=== PATIENT | female | born 1960 | race Caucasian/White ===

== ENCOUNTER → 2018-01-08 | Outpatient (CLI) | payer BC ==
--- NOTE | 2018-01-08 09:48 | CT ---
EXAMINATION TYPE: CT abdomen pelvis w con DATE OF EXAM: 01/08/2018 HISTORY: Abdominal/pelvis pain and pressure CT DLP: 1402mGycm Automated Exposure Control for Dose Reduction was Utilized. CONTRAST: CT scan of the abdomen and pelvis is performed with IV Contrast, patient injected with 100 mL of Isov ue 300. COMPARISON: None FINDINGS: LUNG BASES: No significant abnormality is appreciated. LIVER/GB: There is 1.6 cm gallstone in gallbladder without surrounding inflammatory change. PANCREAS: No significant abnormality is seen. SPLEEN: There is 1.3 cm low dense lesion probable simple thin-walled cyst in the spleen axial image 2 8 posteriorly. ADRENALS: There is 9 mm nodular thickening posterior limb left adrenal gland axial image 29 presumed benign. KIDNEYS: No significant abnormality is seen. BOWEL: The oral contrast reaches level of proximal transverse colon. There is contrast-filled small b owel loops in the left lower quadrant that are prominent measuring up to 3.0 cm in size with gradual transition into nondilated ileal loops in the right lower quadrant. Otherwise there is no suspicious small or large bowel dilatation. Evaluation of distal bowel is slightly suboptimal. There is felt mil d to moderate concentric wall thickening in the sigmoid colon at level of pelvis axial image 78. No s ignificant surrounding fat stranding is seen. UTERUS/ADNEXA: Uterus is surgically absent. A few scattered pelvic phleboliths are seen. LYMPH NODES: No greater than 1cm abdominal or pelvic lymph nodes are appreciated. OSSEOUS STRUCTURES: There is grade 1 anterolisthesis of L3 on L4 with moderate disc space narrowing, there is vacuum disc phenomenon with endplate sclerosis right aspect. Spinal canal stenosis is seen a xial image 49 at this level. There is moderate additional multilevel anterior and lateral spurring th roughout the thoracic spine. There is moderate disc space narrowing with vacuum disc phenomenon and d isc herniation with facet arthropathy contributing to spinal canal effacement L4-L5 level also. OTHER: Moderate calcified plaque of aorta extends into distal branch vessels. There is partial visual ization of fat-containing umbilical hernia axial image 49. IMPRESSION: 1. Possible mild or partial mid small bowel obstruction left lower quadrant. No significant obstructi on is seen as contrast passes this point. Possible sigmoid colitis. Correlate clinically. 2. Multilevel degenerative changes in the thoracolumbar spine with is fairly prominent spinal canal e ffacement L4-L5 level and more prominent spinal canal effacement or stenosis noted L3-L4 level.
== END | disposition home or self-care (01) ==
LOC: RADCTMAIN 06:39
PROVIDERS: ATTEND Family Medicine
DX: R10.9 Unspecified abdominal pain (principal); Z91.012 Allergy to eggs
CPT/HCPCS: 74177; Q9967

== ENCOUNTER → 2018-02-27 | Outpatient (CLI) | payer BC ==
--- NOTE | 2018-02-27 23:27 | MR ---
EXAMINATION TYPE: MR lumbar spine wo/w con DATE OF EXAM: 02/27/2018 COMPARISON: CT abdomen and pelvis September 08, 2017 HISTORY: Low back pain / right sided Radiculopathy per order. Severe low back pain into right lower extremity for 1 year per patient. TECHNIQUE: Multiplanar, multisequence images of the lumbar spine is performed without and with IV contrast, util izing 11 mL intravenous Gadavist FINDINGS: There is levoconvex scoliotic curvature centered in the mid lumbar spine redemonstrated. Sa gittal images of the lumbar spine show vertebral body heights to appear satisfactory. There is straig htening of the lumbar spine with persistent grade 1 retrolisthesis of L4 on L5. There is grade 1 ante rolisthesis L3 on L4. Multilevel disc desiccation is present. There is moderate to advanced disc spa ce narrowing L3-L4 level redemonstrated. There is moderate disc space narrowing L4-L5 levels seen. Po sterior disc herniations are seen L2-L3 through the L4-L5 levels on sagittal images. Most prominent s ruby canal effacement or stenosis is noted L3-L4 level. The conus medullaris is normal in position a nd signal ending mid L1 level. Heterogeneous endplate changes centered at L3-L4 level are identified. No suspicious enhancement is seen. Axial images at T12-L1 level shows mild broad disc bulge mildly effacing anterior thecal sac, bilater al neural foramina are patent. Axial images at L1-L2 level are felt within normal limits. Axial images at L2-L3 level mild to moderate broad disc bulge effacing the anterior thecal sac. There is mild facet joint changes bilaterally effacing posterior lateral thecal sac. There is mild left gr eater than right bilateral anterior inferior neural foraminal narrowing. Axial images at the L3-L4 level shows moderate facet degenerative changes bilaterally effacing lease out worker ior lateral thecal sac. There is spondylolisthesis and advanced broad disc bulge with prominent right foraminal disc protrusion component. There is marked spinal canal stenosis especially right aspect s ruby canal on axial image 13. Left-sided neural foramina shows mild to moderate anterior inferior ne ural foraminal narrowing. Right-sided neural foramina shows advanced neural foraminal narrowing with encroachment on exiting right L3 nerve seen. Axial images at the L4-L5 level mild/moderate facet degenerative changes and ligament flavum hypertro phy effacing posterior lateral thecal sac. There is broad disc bulge effacing the anterior thecal sac and axial image 8. There is moderate right and severe left-sided neural foraminal narrowing encroach ing on left L4 nerve sagittal image 2. Axial images at the L5-S1 level mild facet degenerative changes bilaterally. There is central disc pr otrusion but the spinal canal is preserved. Bilateral neural foramina are patent. No suspicious retroperitoneal findings are identified. IMPRESSION: Straightening of lumbar spine with with multilevel spondylolisthesis and degenerative zenobia nge most prominent at L3-L4 and L4-L5 levels as detailed above. Most prominent spinal canal stenosis L3-L4 level with advanced right-sided neural foraminal narrowing noted at this level.
== END ==
LOC: RADMRIMAIN 08:47
PROVIDERS: ATTEND Family Medicine
DX: M48.061 Spinal stenosis, lumbar region without neurogenic claudication (principal); M99.73 Connective tissue and disc stenosis of intervertebral foramina of lumbar region; M43.16 Spondylolisthesis, lumbar region; M51.17 Intervertebral disc disorders with radiculopathy, lumbosacral region; M41.86 Other forms of scoliosis, lumbar region
CPT/HCPCS: 82565; 72158; A9581

== ENCOUNTER 2020-02-21 16:33 | Inpatient (IN) | payer BC, OTHER ==
--- NOTE | 2020-02-21 16:45 | ED ---
Skin/Abscess/FB HPI - General Chief complaint: Skin/Abscess/Foreign Body Stated complaint: Fever, R Leg Pain Time Seen by Provider: 02/21/20 16:45 Source: patient Mode of arrival: ambulatory Limitations: no limitations - History of Present Illness Initial comments: Patient is a 59-year-old female with history of lymphedema presenting to emergency Department the chief complaint of leg pain and fever. Patient states earlier today she noticed some itching on the right leg which eventually turned into Geraldine frontal erythema all along the right lower extremity. Patient reports that his gradually moving proximally and now it is up to the knee. States she does have some discomfort in the left lower extremity although it is not as significant as the right. States she does have history of multiple the ones that chronically bleak serous fluid due to the lymphedema. She does report some discomfort although it is tolerable. Patient states she did develop a fever about one hour prior to arrival. She did not take any medication to alleviate the symptoms. - Related Data Home Medications Medication Instructions Recorded Confirmed ALPRAZolam [Xanax] 0.25 mg PO DAILY PRN 02/21/20 02/21/20 Atorvastatin Calcium [Lipitor] 40 mg PO HS 02/21/20 02/21/20 Benazepril HCl 10 mg PO DAILY 02/21/20 02/21/20 Cholecalciferol [Vitamin D3 (25 1,000 unit PO DAILY 02/21/20 02/21/20 Mcg = 1000 Iu)] Diclofenac Sodium [Voltaren] 75 mg PO BID 02/21/20 02/21/20 Gabapentin 600 mg PO BID 02/21/20 02/21/20 Omeprazole 20 mg PO DAILY 02/21/20 02/21/20 hydroCHLOROthiazide [Hydrodiuril] 25 mg PO DAILY 02/21/20 02/21/20 traMADol HCL 50 - 100 mg PO TID 02/21/20 02/21/20 Allergies Allergy/AdvReac Type Severity Reaction Status Date / Time No Known Allergies Allergy Verified 02/21/20 18:32 Review of Systems ROS Statement: Those systems with pertinent positive or pertinent negative responses have been documented in the HPI. ROS Other: All systems not noted in ROS Statement are negative. Past Medical History Past Medical History: Hypertension Additional Past Medical History / Comment(s): lymphodema History of Any Multi-Drug Resistant Organisms: None Reported Past Surgical History: Orthopedic Surgery Additional Past Surgical History / Comment(s): bilat knee, left wrist, right ankle. Past Psychological History: No Psychological Hx Reported Smoking Status: Current every day smoker Past Alcohol Use History: None Reported Past Drug Use History: Marijuana General Exam Limitations: no limitations General appearance: alert, in no apparent distress Head exam: Present: atraumatic, normocephalic, normal inspection Eye exam: Present: normal appearance, PERRL, EOMI Pupils: Present: normal accommodation ENT exam: Present: normal exam, normal oropharynx, mucous membranes moist, TM's normal bilaterally, normal external ear exam Neck exam: Present: normal inspection, full ROM. Absent: tenderness Respiratory exam: Present: normal lung sounds bilaterally. Absent: respiratory distress, wheezes, rales Cardiovascular Exam: Present: regular rate, normal rhythm, normal heart sounds Extremities exam: Present: full ROM, tenderness (Some tenderness along the infected cellulitic regions.), normal capillary refill, pedal edema. Absent: normal inspection (Edematous bilateral lower extremity is. Multiple open wounds that are leaking serous fluid. There is also overlying cellulitic skin changes on the right lower extremity that appear different from her chronic stasis dermatitis.), joint swelling, calf tenderness Back exam: Present: normal inspection, full ROM. Absent: tenderness, CVA tenderness (R), CVA tenderness (L) Neurological exam: Present: alert, oriented X3 Psychiatric exam: Present: normal affect, normal mood Skin exam: Present: warm, dry, intact, normal color Course Vital Signs 02/21/20 16:34 Temperature 100.3 F H Pulse Rate 138 H Respiratory 18 Rate Blood Pressure 136/79 O2 Sat by Pulse 97 Oximetry Medical Decision Making - Medical Decision Making patient is a 61-year-old female history of lymphedema presenting to the emergency department with a chief complaint of leg infection. On physical examination, patient appears to have multiple chronic draining wounds of bilateral lower extremities. However, there appears to be cellulitis mostly on the right lower extremity that appears to be progressing proximally towards the knee. This has occurred only within a several hour period. Patient does fit sirs criteria with leukocytopenia, febrile and tachycardic. Patient was started on maintenance fluids of 130 ml/hour along with Rocephin. Patient has a lactate of 2.7. Patient will be started on vancomycin per pharmacy dosing. Patient will be admitted for further medical management. Case discussed with Admitting is Dr Mclean ID on consult - Lab Data Result diagrams: 02/21/20 17:33 02/21/20 17:33 Lab Results 02/21/20 02/21/20 02/21/20 Range/Units 17:33 17:33 17:33 WBC 2.3 L (3.8-10.6) k/uL RBC 4.86 (3.80-5.40) m/uL Hgb 15.0 (11.4-16.0) gm/dL Hct 45.6 (34.0-46.0) % MCV 93.8 (80.0-100.0) fL MCH 30.9 (25.0-35.0) pg MCHC 33.0 (31.0-37.0) g/dL RDW 13.3 (11.5-15.5) % Plt Count 262 (150-450) k/uL Neutrophils % 79 % Lymphocytes % 13 % Monocytes % 7 % Eosinophils % 1 % Basophils % 0 % Neutrophils # 1.8 (1.3-7.7) k/uL Lymphocytes # 0.3 L (1.0-4.8) k/uL Monocytes # 0.2 (0-1.0) k/uL Eosinophils # 0.0 (0-0.7) k/uL Basophils # 0.0 (0-0.2) k/uL Manual Slide Review Performed Sodium 135 L (137-145) mmol/L Potassium 4.1 (3.5-5.1) mmol/L Chloride 97 L (98-107) mmol/L Carbon Dioxide 27 (22-30) mmol/L Anion Gap 11 mmol/L BUN 13 (7-17) mg/dL Creatinine 0.68 (0.52-1.04) mg/dL Est GFR (CKD-EPI)AfAm >90 (>60 ml/min/1.73 sqM) Est GFR (CKD-EPI)NonAf >90 (>60 ml/min/1.73 sqM) Glucose 117 H (74-99) mg/dL Plasma Lactic Acid Micky 2.7 H* (0.7-2.0) mmol/L Calcium 9.4 (8.4-10.2) mg/dL Total Bilirubin 1.6 H (0.2-1.3) mg/dL AST 34 (14-36) U/L ALT 18 (4-34) U/L Alkaline Phosphatase 122 (38-126) U/L Total Protein 6.8 (6.3-8.2) g/dL Albumin 3.7 (3.5-5.0) g/dL Disposition Clinical Impression: Cellulitis, leg, Fever Disposition: ADMITTED IP TO THIS HOSP Condition: Fair Additional Instructions: Patient will be admitted Is patient prescribed a controlled substance at d/c from ED?: No Referrals: Michael Mclean MD [Primary Care Provider] - 1-2 days Time of Disposition: 18:50
[2020-02-21] MEDS ORDERED: cefTRIAXone IN SWFI 1,000 MG/10 ML SYRINGE IVP STA (16:56)
[2020-02-21] MEDS ORDERED: SODIUM CHLORIDE 0.9% 1,000 ML IV STA (16:56)
[2020-02-21] MEDS ORDERED: ACETAMINOPHEN TAB 500 MG TAB PO STA (17:00)
[2020-02-21 18:02] LABS: ALT 18 U/L (4-34); AST 34 U/L (14-36); African American GFR (CKD) >90 (>60 ml/min/1.73 sqM); Albumin 3.7 g/dL (3.5-5.0); Alkaline Phosphatase 122 U/L (38-126); Anion Gap 11 mmol/L; Blood Urea Nitrogen 13 mg/dL (7-17); Calcium 9.4 mg/dL (8.4-10.2); Carbon Dioxide 27 mmol/L (22-30); Chloride 97 mmol/L (98-107); Glucose 117 mg/dL (74-99); Non-African American GFR(CKD) >90 (>60 ml/min/1.73 sqM); Potassium 4.1 mmol/L (3.5-5.1); Sodium 135 mmol/L (137-145); Total Bilirubin 1.6 mg/dL (0.2-1.3); Total Protein 6.8 g/dL (6.3-8.2)
[2020-02-21 18:23] LABS: Basophils % (A) 0 %; Eosinophils % (A) 1 %; HCT 45.6 % (34.0-46.0); Lymphocytes # (A) 0.3 k/uL (1.0-4.8); Lymphocytes % (A) 13 %; MCH 30.9 pg (25.0-35.0); MCV 93.8 fL (80.0-100.0); Mean Platelet Volume 7.3; Monocytes # (A) 0.2 k/uL (0-1.0); Monocytes % (A) 7 %; Neutrophils # (A) 1.8 k/uL (1.3-7.7); Neutrophils % (A) 79 %; Platelet Count 262 k/uL (150-450); RBC 4.86 m/uL (3.80-5.40); RDW 13.3 % (11.5-15.5); WBC 2.3 k/uL (3.8-10.6)
[2020-02-21] MEDS ORDERED: VANCOMYCIN IV PER PHARMACY 1 EACH MISC MISCELLANE PRN ×2 (18:42→18:44)
[2020-02-21] MEDS ORDERED: VANCOMYCIN 1,750 MG in SODIUM CHLORIDE 0.9% 500 ML 500 ML IVPB STA (18:46)
[2020-02-21] MEDS ORDERED: LORazepam 2 MG/ML INJ IV PRN (18:51)
[2020-02-21] MEDS ORDERED: HYDROmorphone 0.5 MG/0.5 ML SYRINGE IVP PRN (18:51)
[2020-02-21] MEDS ORDERED: NALOXONE 0.4 MG/ML 1 ML VIAL IV PRN (18:51)
[2020-02-21] MEDS ORDERED: ONDANSETRON 4 MG/2 ML VIAL IVP PRN (18:51)
[2020-02-21] MEDS: SODIUM CHLORIDE 0.9% 1,000 ML IV SCH (20:41)
[2020-02-21] MEDS ORDERED: ALPRAZolam 0.25 MG TAB PO PRN (21:47)
[2020-02-21] MEDS ORDERED: traMADol 50 MG TAB PO PRN (21:54)
[2020-02-21] MEDS: GABAPENTIN 300 MG CAP PO SCH (23:31)
[2020-02-22] MEDS: HEPARIN SODIUM,PORCINE 5,000 UNIT/ML 1 ML VIAL SQ SCH ×3 (00:10→20:37)
[2020-02-22] MEDS: traMADol 50 MG TAB PO PRN ×3 (00:11→17:46)
[2020-02-22] MEDS: ACETAMINOPHEN TAB 325 MG TAB PO PRN ×3 (02:51→19:18)
[2020-02-22] MEDS: VANCOMYCIN 1,750 MG in SODIUM CHLORIDE 0.9% 500 ML 500 ML IVPB SCH ×2 (06:28→17:46)
[2020-02-22] MEDS: hydroCHLOROthiazide 25 MG TAB PO SCH (07:14)
[2020-02-22] MEDS: GABAPENTIN 300 MG CAP PO SCH ×2 (07:14→20:36)
[2020-02-22] MEDS: ETODOLAC 400 MG TAB PO SCH ×2 (07:15→20:36)
[2020-02-22] MEDS: lisinopriL 5 MG TAB PO SCH (07:15)
[2020-02-22] MEDS: PANTOPRAZOLE 40 MG TABLET PO SCH (07:15)
[2020-02-22] MEDS: SODIUM CHLORIDE 0.9% 1,000 ML IV SCH ×2 (07:17→22:27)
--- NOTE | 2020-02-22 17:37 | P.GSCN ---
History of Present Illness Consult date: 02/22/20 Reason for Consult: venous stasis disease and lymphedema to her bilateral lower extremities. Requesting physician: Michael Mclean History of present illness: This a 59-year-old female patient who is followed by Dr. Michael Mclean on about patient basis. She has a past medical history significant for hypertens ion, chronic ongoing nicotine dependence, daily marijuana use, lymphedema to her bilateral lower extremities and history of urinary tract infection. She presented to the emergency department here at [facility] yesterday with complaints of bilateral lower extremity leg pain, fever and new onset of redness with ulcerations to her bilateral lower extremities. She denies any complaints of nausea, vomiting, diarrhea, constipation, or gait dysfunction. On admission to the emergency department her T-max temperature was 102.4F. Due to her presenting symptoms, fever and redness to her bilateral lower extremities she was admitted for further evaluation and treatment recommendations. Review of Systems A 14 point review systems was completed and was negative except as mentioned in the HPI. Past Medical History Past Medical History: Hypertension Additional Past Medical History / Comment(s): lymphodema History of Any Multi-Drug Resistant Organisms: None Reported Past Surgical History: Orthopedic Surgery Additional Past Surgical History / Comment(s): bilat knee, left wrist, right ankle. Past Psychological History: No Psychological Hx Reported Smoking Status: Current every day smoker Past Alcohol Use History: None Reported Past Drug Use History: Marijuana - Past Family History Mother Additional Family Medical History / Comment(s): mother had a history of degenerative disc disease Medications and Allergies Home Medications Medication Instructions Recorded Confirmed Type ALPRAZolam [Xanax] 0.25 mg PO DAILY PRN 02/21/20 02/21/20 History Atorvastatin Calcium [Lipitor] 40 mg PO HS 02/21/20 02/21/20 History Benazepril HCl 10 mg PO DAILY 02/21/20 02/21/20 History Cholecalciferol [Vitamin D3 (25 1,000 unit PO DAILY 02/21/20 02/21/20 History Mcg = 1000 Iu)] Diclofenac Sodium [Voltaren] 75 mg PO BID 02/21/20 02/21/20 History Gabapentin 600 mg PO BID 02/21/20 02/21/20 History Omeprazole 20 mg PO DAILY 02/21/20 02/21/20 History hydroCHLOROthiazide [Hydrodiuril] 25 mg PO DAILY 02/21/20 02/21/20 History traMADol HCL 50 - 100 mg PO TID 02/21/20 02/21/20 History Allergies Allergy/AdvReac Type Severity Reaction Status Date / Time Latex, Natural Rubber Allergy Rash/Hives Verified 02/22/20 06:43 Surgical - Exam Vital Signs Temp Pulse Resp BP Pulse Ox 100.3 F H 138 H 18 136/79 97 02/21/20 16:34 02/21/20 16:34 02/21/20 16:34 02/21/20 16:34 02/21/20 16:34 - General well developed, well nourished, no distress, moderate distress, no pain - Eyes PERRL, normal ocular movement - ENT normal pinna, normal nares, normal mucosa, no hearing loss, no congestion - Neck neck is supple, no lymphadenopathy. no masses, no bruits, trachea midline, no venous distension - Respiratory lungs are essentially clear throughout. No wheezes, rhonchi or crackles. R espirations are symmetrical and nonlabored. - Cardiovascular regular rhythm and rate. S1 and S2 present, negative for S3, gallop or murmur. - Abdomen abdomen is soft, nontender and nondistended. Active bowel sounds present in all 4 abdominal quadrants. No guarding or rigidity. - Genitourinary deferred - Rectum deferred - Integumentary skin is warm and dry. No clubbing or cyanosis is present. Multiple open wounds with scant serous drainage to her bilateral lower extremities. Erythema to her left lower extremity from her ankle up to her knee. - Neurologic cranial nerves II through XII intact. - Musculoskeletal normal gait, normal posture - Psychiatric oriented to time, oriented to person, oriented to place, speech is normal, memory intact Results - Labs 02/21/20 17:33 02/21/20 17:33 Abnormal Lab Results - Last 24 Hours (Table) 02/21/20 02/21/20 02/21/20 Range/Units 17:33 17:33 17:33 WBC 2.3 L (3.8-10.6) k/uL Lymphocytes # 0.3 L (1.0-4.8) k/uL Sodium 135 L (137-145) mmol/L Chloride 97 L (98-107) mmol/L Glucose 117 H (74-99) mg/dL Plasma Lactic Acid Micky 2.7 H* (0.7-2.0) mmol/L Total Bilirubin 1.6 H (0.2-1.3) mg/dL Diabetes panel 02/21/20 Range/Units 17:33 Sodium 135 L (137-145) mmol/L Potassium 4.1 (3.5-5.1) mmol/L Chloride 97 L (98-107) mmol/L Carbon Dioxide 27 (22-30) mmol/L BUN 13 (7-17) mg/dL Creatinine 0.68 (0.52-1.04) mg/dL Glucose 117 H (74-99) mg/dL Calcium 9.4 (8.4-10.2) mg/dL AST 34 (14-36) U/L ALT 18 (4-34) U/L Alkaline Phosphatase 122 (38-126) U/L Total Protein 6.8 (6.3-8.2) g/dL Albumin 3.7 (3.5-5.0) g/dL Calcium panel 02/21/20 Range/Units 17:33 Calcium 9.4 (8.4-10.2) mg/dL Albumin 3.7 (3.5-5.0) g/dL Pituitary panel 02/21/20 Range/Units 17:33 Sodium 135 L (137-145) mmol/L Potassium 4.1 (3.5-5.1) mmol/L Chloride 97 L (98-107) mmol/L Carbon Dioxide 27 (22-30) mmol/L BUN 13 (7-17) mg/dL Creatinine 0.68 (0.52-1.04) mg/dL Glucose 117 H (74-99) mg/dL Calcium 9.4 (8.4-10.2) mg/dL Adrenal panel 02/21/20 Range/Units 17:33 Sodium 135 L (137-145) mmol/L Potassium 4.1 (3.5-5.1) mmol/L Chloride 97 L (98-107) mmol/L Carbon Dioxide 27 (22-30) mmol/L BUN 13 (7-17) mg/dL Creatinine 0.68 (0.52-1.04) mg/dL Glucose 117 H (74-99) mg/dL Calcium 9.4 (8.4-10.2) mg/dL Total Bilirubin 1.6 H (0.2-1.3) mg/dL AST 34 (14-36) U/L ALT 18 (4-34) U/L Alkaline Phosphatase 122 (38-126) U/L Total Protein 6.8 (6.3-8.2) g/dL Albumin 3.7 (3.5-5.0) g/dL Assessment and Plan Assessment: 1. Lymphedema with cellulitis to her bilateral lower extremities 2. Fever, secondary to above 3. History of hypertension 4. Chronic ongoing nicotine dependence 5. Daily marijuana use Plan: The patient was seen and examined at her bedside on the medical surgical unit. She was also is seen in conjunction with Dr. Robert Pope. Her chart and diagnostics were reviewed. She does have positive dorsalis pedal pulses per Doppler bilateral. Recommendations for local wound care with Triad cream to her ulcerated areas, cover with gauze wrapped with Kirlex and secure with Ed wraps from her toes to just below the knee bilateral. Antibioticmanagement per infectious disease. Elevation of her lower extremities with her legs being e levated 6-12 inches higher than the level of her heart when not up ambulating or sitting up for meals. Medical management and other comorbidities per primary care service. Discussed the importance of smoking cessation and risk modification with the patient. Thank you Dr. Mclean for this consult and we'll look for to working with you in the care of this patient. Time with Patient: Greater than 30
--- NOTE | 2020-02-22 18:19 | HP ---
HISTORY AND PHYSICAL CHIEF COMPLAINT: Fever, chills and cellulitis of the lower legs. HISTORY OF PRESENT ILLNESS: This is another admission for this 59-year-old white female who has congenital massive lower extremity lymphedema. She has had some open areas, particularly on the right lower leg, and noticed that there was some redness. After that she developed chills and came to the emergency room, where she was found to have extensive cellulitis of both lower legs with the right being worse. She has otherwise been fairly healthy. She does have hypertension. REVIEW OF SYSTEMS: She has had no headaches, neurologic problems, difficulty with vision or hearing, chest pain, shortness of breath, cough, hemoptysis, abdominal pain, nausea, vomiting, hematemesis, melena, hematochezia, jaundice, hepatitis, cirrhosis, hematuria, frequency, urgency, incontinence, renal failure, diabetes, etc. Past medical history, family history, and personal and social histories are otherwise unremarkable and noncontributory. PHYSICAL EXAMINATION: Blood pressure is 131/72 with a pulse of 80, respirations of 34 and temperature of 100.1. In general she appeared to be overweight and in no acute distress. Skin color was normal. Skin was warm and dry. Lymph nodes were not enlarged. Head, ears, eyes, nose, mouth and throat were normal. Chest was clear. Cardiac exam was normal. Abdomen was soft and protuberant. Extremities demonstrated massive lymphedema in the lower legs. There were several open areas on the right lower leg with some transudate, and there was cellulitis of both lower legs. Neurologically she was intact. She is admitted to the hospital with the diagnoses: 1. Cellulitis of both lower extremities. 2. Congenital chronic lymphedema of the lower extremities. 3. Mild hypertension. PLAN: IV fluids, IV antibiotics and consults with Vascular Surgery and Infectious Disease. MMODL / IJN: [id number] /
--- NOTE | 2020-02-22 18:24 | PN ---
PROGRESS NOTE DATE OF SERVICE: 02/22/2020 CHIEF COMPLAINT: Cellulitis of the lower legs with lymphedema and bacteremia. HISTORY OF PRESENT ILLNESS: This lady is running low-grade temperatures, but otherwise she is fairly comfortable. PHYSICAL EXAMINATION: Her chest is clear. Cardiac exam is normal. Legs are still quite inflamed and partially wrapped. PLAN: 1. Continue with IV fluids and antibiotics. 2. Await recommendations of Vascular Surgery and Infectious Disease. MMODL / IJN: [id number] /
[2020-02-22] MEDS: ATORVASTATIN 40 MG TAB PO SCH (20:36)
--- NOTE | 2020-02-22 22:58 | P.CONS ---
History of Present Illness - Reason for Consult Consult date: 02/22/20 Bilateral leg cellulitis Requesting physician: Michael Mclean - Chief Complaint Bilateral leg swelling and redness x few days - History of Present Illness Patient is 59-year-old female with a past medical history significant for lymphedema bilateral lower extremity presenting to the ER at [facility] yesterday for evaluation of bilateral leg pain and fever patient noticed to have a increasing swelling and redness especially to the right leg that have been going on for the last few days patient described the pain to be more of a dull aching at times sharp with intensity of almost 5-6 out of 10 and no radiation she did have some superficial ulceration but no purulent drainage with the Center the patient was evaluated by the physician on arrival to the ER, the patient did have a fever to 102F patient did have leukopenia with white c ount 2.3 and elevated lactic acid, patient has been diagnosed with cellulitis patient was admitted to the hospital started on vancomycin and infectious disease was consulted for further management of antibiotic therapy patient has been evaluated by vascular surgery local care to the superficial wound likely has been advised triad cream followed by Ed wrap Review of Systems Positive point has been mentioned in the HPI rest of the systems are negative Past Medical History Past Medical History: Hypertension Additional Past Medical History / Comment(s): lymphodema History of Any Multi-Drug Resistant Organisms: None Reported Past Surgical History: Orthopedic Surgery Additional Past Surgical History / Comment(s): bilat knee, left wrist, right ankle. Past Psychological History: No Psychological Hx Reported Smoking Status: Current every day smoker Past Alcohol Use History: None Reported Past Drug Use History: Marijuana - Past Family History Mother Additional Family Medical History / Comment(s): mother had a history of degenerative disc disease Medications and Allergies Home Medications Medication Instructions Recorded Confirmed Type ALPRAZolam [Xanax] 0.25 mg PO DAILY PRN 02/21/20 02/21/20 History Atorvastatin Calcium [Lipitor] 40 mg PO HS 02/21/20 02/21/20 History Benazepril HCl 10 mg PO DAILY 02/21/20 02/21/20 History Cholecalciferol [Vitamin D3 (25 1,000 unit PO DAILY 02/21/20 02/21/20 History Mcg = 1000 Iu)] Diclofenac Sodium [Voltaren] 75 mg PO BID 02/21/20 02/21/20 History Gabapentin 600 mg PO BID 02/21/20 02/21/20 History Omeprazole 20 mg PO DAILY 02/21/20 02/21/20 History hydroCHLOROthiazide [Hydrodiuril] 25 mg PO DAILY 02/21/20 02/21/20 History traMADol HCL 50 - 100 mg PO TID 02/21/20 02/21/20 History Allergies Allergy/AdvReac Type Severity Reaction Status Date / Time Latex, Natural Rubber Allergy Rash/Hives Verified 02/22/20 06:43 Physical Exam Vitals: Vital Signs Temp Pulse Resp BP BP Pulse Ox 02/22/20 20:42 100.3 F H 02/22/20 19:00 102.8 F H 120 H 20 125/75 92 L 02/22/20 15:17 100 02/22/20 15:00 99.0 F 95 16 113/70 95 02/22/20 07:25 16 02/22/20 07:00 99.5 F 100 16 99/59 94 L 02/22/20 04:37 98.1 F 02/22/20 03:58 100.3 F H 02/22/20 02:52 102.4 F H 02/22/20 01:38 101.2 F H 99 15 110/63 96 Intake and Output 02/22/20 02/22/20 02/22/20 06:59 14:59 22:59 Other: # Voids 2 GENERAL DESCRIPTION: Middle-aged female lying in bed, no distress. No tachypnea or accessory muscle of respiration use. HEENT: Shows Pallor , no scleral icterus. Oral mucous membrane is dry. No pharyngeal erythema or thrush NECK: Trachea central, no thyromegaly. LUNGS: Unlabored breathing. Clear to auscultation anteriorly. No wheeze or crackle. HEART: S1, S2, regular rate and rhythm. No loud murmur ABDOMEN: Soft, no tenderness , guarding or rigidity, no organomegaly EXTREMITIES: Bilateral lower extremity with diffuse swelling and redness no purulent drainage. SKIN: No rash, no masses palpable. NEUROLOGICAL: The patient is awake, alert, oriented x3, mood and affect normal. Results CBC & Chem 7: 02/21/20 17:33 02/21/20 17:33 Labs: Microbiology - Last 24 Hours (Table) 02/21/20 17:33 Blood Culture - Preliminary Blood No Growth after 24 hours Assessment and Plan Assessment: 1- patient presented to hospital with sepsis in this patient who did have a fever and leukopenia source of bilateral lower extremity cellulitis in this patient who did have bilateral lower extremity lymphedema with diffuse swelling redness likely representing streptococal cellulitis clinically doubt MRSA or gram-negative infection and no evidence of any abscess clinically (1) Sepsis Current Visit: Yes Status: Acute Code(s): A41.9 - SEPSIS, UNSPECIFIED ORGANISM SNOMED Code(s): 61282057 (2) Bilateral lower leg cellulitis Current Visit: Yes Status: Acute Code(s): L03.116 - CELLULITIS OF LEFT LOWER LIMB; L03.115 - CELLULITIS OF RIGHT LOWER LIMB SNOMED Code(s): 465220073 Plan: 1-Marked the area of the redness both legs 2- discontinue the vancomycin 3- cefazolin 2 g every 8 hours We will follow on clinical condition and cultures to further adjust medication if needed Thank you for this consultation will follow this patient with you
[2020-02-23] MEDS: hydroCHLOROthiazide 25 MG TAB PO SCH (08:35)
[2020-02-23] MEDS: GABAPENTIN 300 MG CAP PO SCH ×2 (08:35→20:27)
[2020-02-23] MEDS: lisinopriL 5 MG TAB PO SCH (08:35)
[2020-02-23] MEDS: HEPARIN SODIUM,PORCINE 5,000 UNIT/ML 1 ML VIAL SQ SCH ×2 (08:36→20:27)
[2020-02-23] MEDS: HYDROPHILIC CREAM 180 GM TUBE TOPICAL SCH (08:36)
[2020-02-23] MEDS: PANTOPRAZOLE 40 MG TABLET PO SCH (08:36)
[2020-02-23] MEDS: ETODOLAC 400 MG TAB PO SCH ×2 (08:36→21:11)
[2020-02-23 09:45] LABS: African American GFR (CKD) 117.3 (60.0-200.0); Non-African American GFR(CKD) 101.2 (60.0-200.0)
[2020-02-23] MEDS: SODIUM CHLORIDE 0.9% 1,000 ML IV SCH ×2 (14:13→23:32)
[2020-02-23] MEDS: traMADol 50 MG TAB PO PRN (17:02)
--- NOTE | 2020-02-23 17:19 | PN ---
PROGRESS NOTE CHIEF COMPLAINT: Cellulitis of the lower extremities. HISTORY OF PRESENT ILLNESS: This lady is fairly comfortable. Pain is improved. Both legs were wrapped with Ed wraps. She did have slight chill last night. PHYSICAL EXAMINATION: Her chest is clear. The cardiac exam is normal and the abdomen is soft, nontender. Lower extremities are wrapped with 6 inch Ed wraps from the knees all way to the toes. IMPRESSION: 1. Cellulitis of the lower legs with the right being worse than the left. 2. Chronic lymphedema. 3. Stasis dermatitis. PLAN: Continue with IV fluids, antibiotics, compression and elevation. She should be able to go home in the next day or two. MMODL / IJN: [id number] /
[2020-02-23] MEDS: ATORVASTATIN 40 MG TAB PO SCH (20:27)
--- NOTE | 2020-02-23 23:21 | PN ---
PROGRESS NOTE DATE OF SERVICE: 02/23/2020 REASON FOR FOLLOWUP: Bilateral lower extremity venous stasis ulcer with secondary cellulitis. INTERVAL HISTORY: The patient is currently afebrile. The patient is breathing comfortably. Patient denies having any chest pain or shortness of breath or cough. No nausea. No vomiting. No abdominal pain or any worsening of pain to the lower extremities. PHYSICAL EXAMINATION: Blood pressure is 105/63 with a pulse of 81, temperature 98.5. She is 95% on room air. General description is a middle-aged female lying in bed in no distress. RESPIRATORY SYSTEM: Unlabored breathing, clear to auscultation. HEART: S1, S2. Regular rate and rhythm. ABDOMEN: Soft, no tenderness. Lower extremity redness slightly decreased. DIAGNOSTIC IMPRESSION AND PLAN: Patient with bilateral lower extremity venous stasis ulcer and secondary cellulitis. The patient is currently covered with cefazolin 2 grams q.8 to continue. Local wound care per Surgery. Continue with supportive care. MMODL / IJN: [id number] /
[2020-02-24] MEDS: ETODOLAC 400 MG TAB PO SCH ×2 (08:14→20:16)
[2020-02-24] MEDS: HEPARIN SODIUM,PORCINE 5,000 UNIT/ML 1 ML VIAL SQ SCH ×2 (08:15→20:19)
[2020-02-24] MEDS: GABAPENTIN 300 MG CAP PO SCH ×2 (08:15→20:16)
[2020-02-24] MEDS: PANTOPRAZOLE 40 MG TABLET PO SCH (08:15)
[2020-02-24] MEDS: lisinopriL 5 MG TAB PO SCH (08:15)
[2020-02-24] MEDS: hydroCHLOROthiazide 25 MG TAB PO SCH (08:15)
[2020-02-24] MEDS: traMADol 50 MG TAB PO PRN ×2 (08:16→20:20)
[2020-02-24 10:18] LABS: African American GFR (CKD) 124.5 (60.0-200.0); Non-African American GFR(CKD) 107.4 (60.0-200.0)
[2020-02-24] MEDS: ACETAMINOPHEN TAB 325 MG TAB PO PRN (11:35)
[2020-02-24] MEDS: NICOTINE 21MG/24HR PATCH TRANSDERM SCH (11:36)
[2020-02-24] MEDS: HYDROPHILIC CREAM 180 GM TUBE TOPICAL SCH (11:37)
[2020-02-24] MEDS: SODIUM CHLORIDE 0.9% 1,000 ML IV SCH (16:57)
--- NOTE | 2020-02-24 17:13 | CDI ---
Documentation Clarification Form Date: 02/24/2020 04:48:59 PM From: Linette Leon RN, CCDS Admit Date: 02/21/2020 06:43:00 PM Patient Name: Kaylen Loyola Visit Number: [id number] Discharge Date: ATTENTION: The Clinical Documentation Specialists (CDI) and [facility] Coding Staff appreciate your assistance in clarifying documentation. Please respond to the clarification below the line at the bottom and electronically sign. The CDI & [facility] Coding staff will review the response and follow-up if needed. Please note: Queries are made part of the Legal Health Record. If you have any questions, please contact the author of this message via ITS. Dr. Michael Mclean The patient presented with the following: skin abscess fever, right leg pain. ID consult has documented sepsis. Please render your opinion on the diagnosis. 02/21 ID Consult: Patient presented to hospital with sepsis source of bilateral lower extremity cellulitis in this patient who did have bilateral lower extremity lymphedema with diffuse swelling redness likely representing steptococal cellulitis clinically doubt MRSA or gram-negative infection and no evidence of any abscess clinically History/Risk Factors: Hypertension, Current every day smoker Clinical Indicators: 59-year-old female with history of lymphedema present to ED on 02/20 with complaint of leg pain and fever. ED exam, there appears to be cellulitis mostly on the right lower extremity progressing proximally towards the knee. 02/20 WBC 2.3 02/21 Lactic acid: 2.7 Blood cultures: 02/20 pending 02/22 right leg Gram Strain Pending 02/20 Vital signs on admission: 136/79 138 18 100.3 97 % RA 02/21 Vital signs: 110/63 99 15 101.2 Treatment: Cefazolin 2 gm IV q 8 hrs Hydrodiuril 25 mg po daily Marked area of redness both leg (monitor) Traid cream to ulcerated areas, cover with gauze wrapped with Kirlex and secure with Ed wraps toes to just below the knee bilateral Elevate lower extremities 6-12 inches higher than the level of her heart In your professional opinion, please clarify if these findings signify one of the following conditions, whether the condition is POA, and cause, if known: Condition Sepsis secondary to bilateral leg cellulitis POA Sepsis ruled out Other, please specify Unable to determine SIRS Criteria (2 or more of the following may indicate SIRS): -Temperature < 96.8F (36C) or > 101.0F (38.3C) -Heart Rate > 90 bpm -Respiratory Rate > 20 breaths/min or PaCO2 < 32 mmHg -White Blood Cell Count > 12,000 or < 4,000 cells/mm3 or > 10% bands -Lactate >2.0 mmol/L (>4.0 is equivalent to septic shock) (Last Revision: August 2017) MTDD
--- NOTE | 2020-02-24 18:22 | PN ---
PROGRESS NOTE DATE OF SERVICE: 02/24/2020 REASON FOR FOLLOWUP: Bilateral lower extremity venostasis ulcer and cellulitis. INTERVAL HISTORY: Patient is currently afebrile. Patient has been breathing comfortably. The patient denies having any chest pain. No shortness of breath. No cough. No nausea, vomiting or abdominal pain. Pain and discomfort in the lower back has decreased in intensity. PHYSICAL EXAMINATION: Blood pressure is 119/70 with a pulse of 100. Temperature 99.4. She is 92% on room air. General description is a middle-aged female lying in bed in no distress. Respiratory system: Unlabored breathing, clear to auscultation anteriorly. Heart S1, S2. Regular rate and rhythm. Abdomen soft, no tenderness. Legs: Redness has slightly decreased. LABS: No new labs have been obtained today. DIAGNOSTIC IMPRESSION AND PLAN: Patient with bilateral lower extremity venostasis ulcer with secondary cellulitis, possible streptococcal disease. Patient clinically responding to cefazolin to continue local wound care per Vascular Surgery and monitor clinical course closely. MMODL / IJN: [id number] / JOANNA
--- NOTE | 2020-02-24 19:48 | PN ---
PROGRESS NOTE CHIEF COMPLAINT: Cellulitis of both legs. HISTORY OF PRESENT ILLNESS: This lady is doing well. She is having some problems with nicotine withdrawal, but otherwise doing well. She is running a low-grade temp late at night. PHYSICAL EXAMINATION: Chest is clear. Cardiac exam is normal. Abdomen is soft, nontender. Legs were wrapped and elevated. IMPRESSION: 1. Cellulitis of both legs. 2. Lymphedema with dermatitis, lower legs. 3. Obesity. 4. Nicotine withdrawal. PLAN: 1. Nicotine patch. 2. Continue with IV fluids and antibiotics for another day or two. MMODL / IJN: [id number] /
[2020-02-24] MEDS: ATORVASTATIN 40 MG TAB PO SCH (20:16)
[2020-02-25] MEDS: SODIUM CHLORIDE 0.9% 1,000 ML IV SCH ×2 (04:07→17:22)
[2020-02-25] MEDS: MORPHINE SULFATE 4 MG/ML SYRINGE IV PRN ×2 (09:17→20:36)
[2020-02-25] MEDS: hydroCHLOROthiazide 25 MG TAB PO SCH (09:24)
[2020-02-25] MEDS: lisinopriL 5 MG TAB PO SCH (09:24)
[2020-02-25] MEDS: ETODOLAC 400 MG TAB PO SCH ×2 (09:24→20:43)
[2020-02-25] MEDS: GABAPENTIN 300 MG CAP PO SCH ×2 (09:24→20:36)
[2020-02-25] MEDS: PANTOPRAZOLE 40 MG TABLET PO SCH (09:24)
[2020-02-25] MEDS: NICOTINE 21MG/24HR PATCH TRANSDERM SCH (09:25)
[2020-02-25] MEDS: HEPARIN SODIUM,PORCINE 5,000 UNIT/ML 1 ML VIAL SQ SCH ×2 (09:25→20:36)
[2020-02-25 09:28] LABS: African American GFR (CKD) 117.3 (60.0-200.0); Non-African American GFR(CKD) 101.2 (60.0-200.0)
[2020-02-25] MEDS: traMADol 50 MG TAB PO PRN (12:33)
[2020-02-25] MEDS: HYDROPHILIC CREAM 180 GM TUBE TOPICAL SCH (12:36)
--- NOTE | 2020-02-25 16:06 | PN ---
PROGRESS NOTE CHIEF COMPLAINT: Cellulitis, right lower extremity. HISTORY OF PRESENT ILLNESS: This lady is actually getting worse. She is having a little bit more discomfort in her right leg and the right thigh is now cellulitic. She is still running low-grade temps at night. PHYSICAL EXAMINATION: Chest is clear. Cardiac exam is normal. Abdomen is soft, nontender. Both lower legs are wrapped and toes are well perfused. The right thigh is larger than the left and she has developed a generalized erythema, which is slightly tender. IMPRESSION: 1. Advancing cellulitis of the right lower extremity. 2. Venous and lymphatic disease of the lower extremities. PLAN: Continue with elevation, IV fluids and IV antibiotics. Continue to watch the right thigh over the next 24 hours. MMODL / IJN: [id number] /
[2020-02-25] MEDS: CLINDAMYCIN 900 MG in DEXTROSE 5% IN WATER 50 ML IVPB SCH ×2 (17:17)
--- NOTE | 2020-02-25 20:23 | PN ---
PROGRESS NOTE DATE OF SERVICE: 02/25/2020 REASON FOR FOLLOWUP: Bilateral lower extremity cellulitis, right greater than left. INTERVAL HISTORY: Patient is currently afebrile. The patient is breathing comfortably. The patient noticed to have more swelling and redness to the thigh area compared to the leg, but denies any worsening pain. No chest pain, shortness of breath or cough. No abdominal pain or diarrhea. PHYSICAL EXAMINATION: Blood pressure 129/70 with a pulse of 90, temperature 98.1. She is 94% on room air. General description: The patient is a middle-aged female lying in bed in no distress. Respiratory system: Unlabored breathing, clear to auscultation anteriorly. Heart S1, S2. Regular rate and rhythm. ABDOMEN: Soft, no tenderness. Right thigh did have some redness. No drainage. LABS: Creatinine 0.6. DIAGNOSTIC IMPRESSION AND PLAN: Patient with bilateral lower extremity cellulitis, right greater than the left. The patient did show improvement initially but seemed to have slightly more swelling and redness to the thigh, some of it could have been the way her legs have been positioned. We will add clindamycin. Continue cefazolin. Repeat the blood work tomorrow and monitor. Re-evaluate the patient tomorrow. Continue supportive care. MMODL / IJN: [id number] / MTDD
[2020-02-25] MEDS: ATORVASTATIN 40 MG TAB PO SCH (20:36)
[2020-02-26] MEDS: CLINDAMYCIN 900 MG in DEXTROSE 5% IN WATER 50 ML IVPB SCH ×8 (00:38→23:58)
[2020-02-26] MEDS: SODIUM CHLORIDE 0.9% 1,000 ML IV SCH ×2 (05:48→20:08)
[2020-02-26] MEDS: MORPHINE SULFATE 4 MG/ML SYRINGE IV PRN (05:56)
[2020-02-26 06:55] LABS: Basophils % (A) 0 %; Eosinophils # (A) 0.1 k/uL (0-0.7); Eosinophils % (A) 2 %; HCT 31.4 % (34.0-46.0); Lymphocytes # (A) 0.8 k/uL (1.0-4.8); Lymphocytes % (A) 11 %; MCH 32.5 pg (25.0-35.0); MCHC 33.7 g/dL (31.0-37.0); MCV 96.4 fL (80.0-100.0); Mean Platelet Volume 7.3; Monocytes # (A) 0.5 k/uL (0-1.0); Monocytes % (A) 7 %; Neutrophils # (A) 5.5 k/uL (1.3-7.7); Neutrophils % (A) 79 %; Platelet Count 250 k/uL (150-450); RBC 3.25 m/uL (3.80-5.40); RDW 13.2 % (11.5-15.5)
[2020-02-26 06:57] LABS: HGB 10.6 gm/dL (11.4-16.0)
[2020-02-26] MEDS: NICOTINE 21MG/24HR PATCH TRANSDERM SCH (08:11)
[2020-02-26] MEDS: HEPARIN SODIUM,PORCINE 5,000 UNIT/ML 1 ML VIAL SQ SCH ×2 (08:12→20:09)
[2020-02-26] MEDS: lisinopriL 5 MG TAB PO SCH (08:13)
[2020-02-26] MEDS: hydroCHLOROthiazide 25 MG TAB PO SCH (08:13)
[2020-02-26] MEDS: ETODOLAC 400 MG TAB PO SCH ×2 (08:13→20:08)
[2020-02-26] MEDS: GABAPENTIN 300 MG CAP PO SCH ×2 (08:13→20:09)
[2020-02-26] MEDS: PANTOPRAZOLE 40 MG TABLET PO SCH (08:13)
[2020-02-26] MEDS: HYDROPHILIC CREAM 180 GM TUBE TOPICAL SCH (08:14)
[2020-02-26 09:57] LABS: African American GFR (CKD) 117.3 (60.0-200.0); Anion Gap 8.2 mmol/L (4.00-12.00); BUN/Creat Ratio 13.33 Ratio (12.00-20.00); C Reactive Protein 30.1 mg/dL (0.0-0.8); Calcium 7.6 mg/dL (8.7-10.3); Carbon Dioxide 33.8 mmol/L (21.6-31.8); Non-African American GFR(CKD) 101.2 (60.0-200.0)
[2020-02-26] MEDS ORDERED: Potassium Replacement Protocol 1 EACH MISC MISCELLANE PRN (11:19)
[2020-02-26] MEDS: POTASSIUM CHLORIDE 10 MEQ in WATER FOR INJECTION 1 100ML.BAG IVPB SCH ×2 (11:44→13:19)
--- NOTE | 2020-02-26 11:57 | PN ---
PROGRESS NOTE DATE OF SERVICE: 02/26/2020. CHIEF COMPLAINT: Cellulitis of both lower extremities. HISTORY OF PRESENT ILLNESS: This lady is doing just about the same. She continues to have significant swelling, tenderness, pain and erythema in the entire right leg from the groin down. The right thigh looks slightly better today than yesterday. PHYSICAL EXAM: CHEST: Clear. Cardiac exam is normal. Abdomen is soft, nontender. Potassium is slightly low and this will be corrected. IMPRESSION: 1. Cellulitis of both legs with the right being worse than the left with extension all the way to the inguinal ligament. 2. Hypertension. 3. Hypokalemia. PLAN: Continue with elevation, IV fluids, wraps and antibiotics. MMODL / IJN: [id number] /
[2020-02-26] MEDS: traMADol 50 MG TAB PO PRN ×2 (15:05→20:09)
[2020-02-26] MEDS: POTASSIUM CHLORIDE ER 20 MEQ TAB.ER PO SCH ×2 (15:06→20:09)
[2020-02-26] MEDS: ATORVASTATIN 40 MG TAB PO SCH (20:08)
--- NOTE | 2020-02-27 01:56 | PN ---
PROGRESS NOTE DATE OF SERVICE: 02/26/2020 REASON FOR FOLLOWUP: Bilateral lower extremity venous stasis ulcer and cellulitis. INTERVAL HISTORY: The patient is currently afebrile. The patient is breathing comfortably. Overall, pain and discomfort of the lower extremities slightly decreased. No chest pain. No cough. No abdominal pain. No diarrhea. PHYSICAL EXAMINATION: Blood pressure is 124/76, pulse of 95, temperature 98.6. She is 93% on room air. General description is a middle-aged female lying in bed in no distress. RESPIRATORY SYSTEM: Unlabored breathing, clear to auscultation anteriorly. HEART: S1, S2. Regular rate and rhythm. ABDOMEN: Soft, no tenderness. LABS: White count normal at 7.0. Wound culture with MSSA and group C strep. DIAGNOSTIC IMPRESSION AND PLAN: Patient bilateral lower extremity venous stasis ulcer with secondary cellulitis culture with MSSA and group C strep. Patient is covered with clindamycin and cefazolin, to continue. Local care per Surgery. Finish therapy with oral antibiotic. Questions and concerns were answered. MMODL / IJN: [id number] /
[2020-02-27] MEDS: NICOTINE 21MG/24HR PATCH TRANSDERM SCH (07:26)
[2020-02-27] MEDS: HYDROPHILIC CREAM 180 GM TUBE TOPICAL SCH (07:27)
[2020-02-27] MEDS: ETODOLAC 400 MG TAB PO SCH ×2 (07:27→20:29)
[2020-02-27] MEDS: CLINDAMYCIN 900 MG in DEXTROSE 5% IN WATER 50 ML IVPB SCH ×4 (07:27→17:13)
[2020-02-27] MEDS: traMADol 50 MG TAB PO PRN ×2 (07:28→17:13)
[2020-02-27] MEDS: PANTOPRAZOLE 40 MG TABLET PO SCH (07:28)
[2020-02-27] MEDS: POTASSIUM CHLORIDE ER 20 MEQ TAB.ER PO SCH ×3 (07:28→20:30)
[2020-02-27] MEDS: lisinopriL 5 MG TAB PO SCH (07:28)
[2020-02-27] MEDS: hydroCHLOROthiazide 25 MG TAB PO SCH (07:28)
[2020-02-27] MEDS: GABAPENTIN 300 MG CAP PO SCH ×2 (07:28→20:30)
[2020-02-27] MEDS: SODIUM CHLORIDE 0.9% 1,000 ML IV SCH ×2 (07:30→23:42)
[2020-02-27] MEDS: HEPARIN SODIUM,PORCINE 5,000 UNIT/ML 1 ML VIAL SQ SCH ×2 (08:15→20:30)
[2020-02-27 08:32] LABS: Potassium 2.7 mmol/L (3.5-5.5)
--- NOTE | 2020-02-27 08:37 | P.PN ---
Subjective Progress Note Date: 02/27/20 Principal diagnosis: Venous stasis disease, lymphedema and cellulitis to her bilateral lower extremities, with a positive wound culture showing Staphylococcus aureus, beta hemolytic strep group C. Past medical history significant for hypertension, chronic ongoing nicotine dependence, daily marijuana use, lymphedema to her bilateral lower extremities and history of urinary tract infection. The patient was seen in follow-up today 02/27/2020 at her bedside on the fourth floor medical surgical unit. Currently she is sitting up to the bedside edge, she is awake, alert and oriented 3 and is in no acute distress. Right leg wound culture came back positive for Staphylococcus aureus, beta hemolytic strep group C. She remains on Kefzol and clindamycin for antibiotic coverage which is managed by infectious disease. She has been receiving daily wound care to her bilateral lower extremities using Triad cream, Kerlix wrap from toes to just below the knee and secured with Ed wraps from her toes just below the knee bilaterally. She remained afebrile the last 24 hours with her T-max temperature 99.7F. Her right upper thigh with decreased redness today and decrease in swelling. The patient denies any complaints of pain or shortness of breath at this time. She reports she feels much improved today. Objective - Vital Signs Vital signs: Vital Signs Temp 98.4 F 02/27/20 07:00 Pulse 94 02/27/20 07:00 Resp 20 02/27/20 07:00 BP 125/75 02/27/20 07:00 Pulse Ox 90 L 02/27/20 07:00 Intake & Output 02/26/20 02/27/20 02/27/20 18:59 06:59 18:59 Intake Total 830 1830 Output Total 0 Balance 830 1830 Intake: Intake, IV Titration 250 150 Amount Clindamycin 900 mg In 50 Dextrose 5% in Water 50 ml @ 50 mls/hr IVPB Q8HR SILVERIO Rx#:[id number] Sodium Chloride 0.9% 1, 150 150 000 ml @ 75 mls/hr IV . [id number] SILVERIO Rx#:[id number] ceFAZolin 2 gm In Sodium 50 Chloride 0.9% 50 ml @ 100 mls/hr IVPB Q8HR SILVERIO Rx# :[id number] Oral [id number] 1680 Output: Stool 0 Other: Voiding Method Toilet Toilet # Voids 1 - Constitutional General appearance: Present: cooperative, no acute distress, obese - EENT Eyes: Present: PERRLA, normal appearance. Absent: scleral icterus ENT: Present: hearing grossly normal - Neck Details: Neck is supple, no JVD, no lymphadenopathy. - Respiratory Details: Lung sounds are essentially clear throughout. No wheezes, rhonchi or crackles. Respirations are symmetrical and nonlabored. - Cardiovascular Details: Regular rhythm and rate. S1 and S2 present, negative for S3, gallop or murmur. - Gastrointestinal Gastrointestinal Comment(s): Abdomen is soft, nontender and nondistended. Active bowel sounds present all 4 abdominal quadrants. No guarding or rigidity. Tolerating oral intake. - Genitourinary Genitourinary Comment(s): Continues to void. - Integumentary Integumentary Comment(s): Skin is warm and dry. No clubbing or cyanosis is present. Redness to her bila teral lower extremities continues to improve. - Neurologic Neurologic: Present: CNII-XII intact - Musculoskeletal Musculoskeletal: Present: gait normal, strength equal bilaterally - Psychiatric Psychiatric: Present: A&O x's 3, appropriate affect, intact judgment & insight - Allied health notes Allied health notes reviewed: nursing - Labs CBC & Chem 7: 02/26/20 05:38 02/27/20 05:25 Labs: Abnormal Lab Results - Last 24 Hours (Table) 02/26/20 02/27/20 Range/Units 05:38 05:25 Potassium 2.7 L* 2.9 L (3.5-5.5) mmol/L Carbon Dioxide 33.8 H (21.6-31.8) mmol/L BUN 8.0 L (9.0-27.0) mg/dL Calcium 7.6 L (8.7-10.3) mg/dL C-Reactive Protein 30.1 H (0.0-0.8) mg/dL Microbiology - Last 24 Hours (Table) 02/21/20 17:33 Blood Culture - Preliminary Blood No Growth after 120 hours 02/23/20 11:39 Gram Stain - Preliminary Leg - Right Wound Culture - Preliminary Staphylococcus aureus Beta Hemolytic Strep Group C Assessment and Plan Assessment: 1. Lymphedema with venous stasis ulcers and secondary to cellulitis to her bilateral lower extremities, wound culture from the right leg positive for Staphylococcus aureus, beta hemolytic streptococcus group C 2. Fever, secondary to above 3. History of hypertension 4. Chronic ongoing nicotine dependence 5. Daily marijuana use Plan: 1. Continue local wound care to her bilateral lower extremities. Dressings were changed this morning, tried cream placed to venous stasis ulcers to her right lower extremity, bilateral lower extremities were wrapped with Kerlix from toes to just below the knee and secured with Ed wrap from her toes to just below the knees. The patient continues to have decreased swelling and redness to her bilateral lower extremities. 2. Right leg wound culture positive for Staphylococcus aureus beta-hemolytic strep group C, continue antibiotics managed by infectious disease. 3. Physical therapy has been consulted for fitting for CircAid wraps to her bilateral lower extremities. May need a referral to the outpatient physical therapy for lymphedema management. 4. Medical management and other comorbidities per primary care service. 5. More recommendations to follow based on patient's clinical course. Time with Patient: Greater than 30
--- NOTE | 2020-02-27 15:16 | MISC ---
MISCELLANOUS REPORT QUERY: Sepsis ruled out. MMODL / IJN: [id number] /
--- NOTE | 2020-02-27 18:03 | PN ---
PROGRESS NOTE DATE OF SERVICE: 02/27/2020 CHIEF COMPLAINT: Cellulitis and lymphedema of both lower extremities. HISTORY OF PRESENT ILLNESS: This lady is doing fairly well. Her legs are becoming much smaller. She does complain of some pain in the legs with the Ed wraps when she is up. However, this could be due more to the cellulitis than the Ed wraps. PHYSICAL EXAMINATION: Chest is clear. Cardiac exam is normal. Abdomen is soft, nontender. Legs are progressively getting smaller every day. The right thigh is starting to go down and there is less erythema. IMPRESSION: 1. Bilateral chronic lymphedema with stasis dermatitis. 2. Cellulitis of the lower extremities. 3. Cellulitis of the right thigh. 4. Hypertension. PLAN: Continue with IV fluids, antibiotics, elevation and wraps until she is cleared by Surgery. MMODL / IJN: [id number] /
[2020-02-27] MEDS: ATORVASTATIN 40 MG TAB PO SCH (20:29)
[2020-02-28] MEDS: CLINDAMYCIN 900 MG in DEXTROSE 5% IN WATER 50 ML IVPB SCH ×4 (01:39→07:44)
[2020-02-28] MEDS: traMADol 50 MG TAB PO PRN ×3 (01:40→20:35)
--- NOTE | 2020-02-28 01:44 | PN ---
PROGRESS NOTE DATE OF SERVICE: 02/27/2020 REASON FOR FOLLOWUP: Bilateral lower extremity cellulitis. INTERVAL HISTORY: The patient is currently afebrile. The patient is breathing comfortably. The patient denies having any chest pain, shortness of breath or cough. No abdominal pain or diarrhea. Overall, pain and discomfort to the lower extremity has decreased. PHYSICAL EXAMINATION: Blood pressure 143/75 with a pulse of 88, temperature 98.6. She is 92% on room air. General description is a middle-aged female lying in bed in no distress. RESPIRATORY SYSTEM: Unlabored breathing, clear to auscultation anteriorly. HEART: S1, S2. Regular rate and rhythm. ABDOMEN: Soft, no tenderness. Legs overall swelling has decreased. LABS: Hemoglobin is 10.6, white count 7.0, creatinine 0.6. DIAGNOSTIC IMPRESSION AND PLAN: Patient with bilateral lower extremity wound and cellulitis. Culture with MSSA and strep. The patient clinically responded to cefazolin and clindamycin, to finish therapy with oral Keflex, local wound care per Surgery. Continue supportive care. MMODL / IJN: [id number] / MTDD
[2020-02-28] MEDS: POTASSIUM CHLORIDE ER 20 MEQ TAB.ER PO SCH ×8 (07:43→22:30)
[2020-02-28] MEDS: hydroCHLOROthiazide 25 MG TAB PO SCH (07:43)
[2020-02-28] MEDS: HEPARIN SODIUM,PORCINE 5,000 UNIT/ML 1 ML VIAL SQ SCH ×2 (07:43→20:34)
[2020-02-28] MEDS: lisinopriL 5 MG TAB PO SCH (07:43)
[2020-02-28] MEDS: ETODOLAC 400 MG TAB PO SCH ×2 (07:43→20:38)
[2020-02-28] MEDS: GABAPENTIN 300 MG CAP PO SCH ×2 (07:43→20:35)
[2020-02-28] MEDS: PANTOPRAZOLE 40 MG TABLET PO SCH (07:43)
[2020-02-28] MEDS: NICOTINE 21MG/24HR PATCH TRANSDERM SCH ×2 (07:44→11:53)
[2020-02-28] MEDS: HYDROPHILIC CREAM 180 GM TUBE TOPICAL SCH (07:44)
[2020-02-28] MEDS ORDERED: ALTEPLASE 10 MG in SODIUM CHLORIDE 0.9% 100 ML IRRIGATION ONE (08:08)
[2020-02-28] MEDS: SODIUM CHLORIDE 0.9% 1,000 ML IV SCH ×2 (09:48→23:36)
--- NOTE | 2020-02-28 10:13 | P.PN ---
Subjective Progress Note Date: 02/28/20 Principal diagnosis: Venous stasis disease, lymphedema and cellulitis to her bilateral lower extremities, with a positive wound culture showing Staphylococcus aureus, beta hemolytic strep group C. Past medical history significant for hypertension, chronic ongoing nicotine dependence, daily marijuana use, lymphedema to her bilateral lower extremities and history of urinary tract infection. The patient was seen in follow-up today 02/28/2020 at her bedside on the fourth floor medical surgical unit. Currently she is sitting up to the bedside edge, she is awake, alert and oriented 3 and is in no acute distress. Right leg wound culture came back positive for Staphylococcus aureus, beta hemolytic strep group C. She remains on Kefzol and clindamycin for antibiotic coverage which is managed by infectious disease. She has been receiving daily wound care to her bilateral lower extremities using Triad cream, Kerlix wrap from toes to just below the knee and secured with Ed wraps from her toes just below the knee bilaterally. The dressings were removed this morning and the patient was able to get in the shower. She remains afebrile the last 24 hours. The redness to her bilateral lower extremities is improving slightly on a daily basis. The patient reports she has not seen her legs look this good in 25 years. Objective - Vital Signs Vital signs: Vital Signs Temp 98.1 F 02/28/20 07:00 Pulse 85 02/28/20 07:00 Resp 19 02/28/20 07:00 BP 147/83 02/28/20 07:00 Pulse Ox 93 L 02/28/20 07:00 Intake & Output 02/27/20 02/28/20 02/28/20 18:59 06:59 18:59 Intake Total 830 1230 Balance 830 1230 Intake: Intake, IV Titration 250 650 Amount Clindamycin 900 mg In 50 50 Dextrose 5% in Water 50 ml @ 50 mls/hr IVPB Q8HR [facility] Rx#:[id number] Sodium Chloride 0.9% 1, 150 550 000 ml @ 75 mls/hr IV . [id number] [facility] Rx#:[id number] ceFAZolin 2 gm In Sodium 50 Chloride 0.9% 50 ml @ 100 mls/hr IVPB Q8H [facility] Rx#: [id number] ceFAZolin 2 gm In Sodium 50 Chloride 0.9% 50 ml @ 100 mls/hr IVPB Q8HR [facility] Rx# :[id number] Oral 580 580 Other: Voiding Method Toilet # Voids 2 2 - Constitutional General appearance: Present: cooperative, no acute distress, obese - EENT Eyes: Present: PERRLA, normal appearance. Absent: scleral icterus ENT: Present: hearing grossly normal - Neck Details: Neck is supple, no JVD, no lymphadenopathy. - Respiratory Details: Lung sounds essentially clear throughout. No wheezes, rhonchi or crackles. Respirations are symmetrical and nonlabored. - Cardiovascular Details: Regular rhythm and rate. S1 and S2 present, negative for S3, gallop or murmur. - Gastrointestinal Gastrointestinal Comment(s): Abdomen is soft, nontender nondistended. Active bowel sounds present all 4 abdominal quadrants. No guarding or rigidity. No organomegaly appreciated. Tolerating oral intake. - Genitourinary Genitourinary Comment(s): Continues to void. - Integumentary Integumentary Comment(s): Skin is warm and dry. No clubbing or cyanosis is present. Redness to her bilateral lower extremities continues to improve. - Neurologic Neurologic: Present: CNII-XII intact - Musculoskeletal Musculoskeletal: Present: gait normal, strength equal bilaterally - Psychiatric Psychiatric: Present: A&O x's 3, appropriate affect, intact judgment & insight - Allied health notes Allied health notes reviewed: nursing - Labs CBC & Chem 7: 02/26/20 05:38 02/27/20 05:25 Labs: Microbiology - Last 24 Hours (Table) 02/21/20 17:33 Blood Culture - Final Blood No Growth after 144 hours 02/23/20 11:39 Gram Stain - Final Leg - Right Wound Culture - Final Staphylococcus aureus Beta Hemolytic Strep Group C Assessment and Plan Assessment: 1. Lymphedema with venous stasis ulcers and secondary to cellulitis to her bilateral lower extremities, wound culture from the right leg positive for Staphylococcus aureus, beta hemolytic streptococcus group C 2. Fever, secondary to above 3. History of hypertension 4. Chronic ongoing nicotine dependence 5. Daily marijuana use Plan: 1. Continue local wound care to her bilateral lower extremities. Dressings were changed this morning, triad cream placed to venous stasis ulcers to her right lower extremity, bilateral lower extremities were wrapped with Kerlix from toes to just below the knee and secured with Ed wrap from her toes to just below the knees. The patient continues to have decreased swelling and redness to her bilateral lower extremities. Once discharged continue with the current wound care regimen until seen in the outpatient lymphedema clinic. 2. Right leg wound culture positive for Staphylococcus aureus beta-hemolytic strep group C, continue antibiotics managed by infectious disease. 3. Physical therapy has been consulted for fitting for CircAid wraps to her bilateral lower extremities. Patient to contact outpatient Physical Therapy for Lymphedema, CircAid stockings. They can be contacted by calling [facility] at [phone] and ask to speak with Shweta Winter. 4. Medical management and other comorbidities per primary care service. 5. The patient may be discharged home per the cardiovascular surgery standpoint. 6. We will continue to follow the patient on an as-needed basis, please feel free to call for any further questions or concerns. 7. The patient is scheduled to follow-up with Dr. Pope in the outpatient setting on 03/08/2020 at 9:15 AM. Time with Patient: Greater than 30
[2020-02-28 12:49] VITALS: BMI 38.7
[2020-02-28] MEDS ORDERED: Potassium Replacement Protocol 1 EACH MISC MISCELLANE PRN ×2 (13:50→17:57)
--- NOTE | 2020-02-28 17:19 | PN ---
PROGRESS NOTE DATE OF SERVICE: 02/28/2020 REASON FOR FOLLOWUP: Bilateral lower extremity venostasis ulcer and cellulitis. INTERVAL HISTORY: The patient is currently afebrile. The patient is breathing comfortably. The patient denies having any chest pain, no shortness of breath, no cough, no nausea, no abdominal pain. Overall swelling of the leg has decreased. PHYSICAL EXAMINATION: Her blood pressure is 139/77, pulse of 77, temperature 97.9. She is 95% on room air. General description is a middle-aged female lying in bed in no distress. RESPIRATORY SYSTEM: Unlabored breathing, clear to auscultation anteriorly. HEART: S1, S2. Regular rate and rhythm. ABDOMEN: Soft. No tenderness. LEGS: Overall swelling and redness have improved, no drainage. LABS: Hemoglobin is 10.3, white count 6.0, BUN of 8, creatinine 0.6. DIAGNOSTIC IMPRESSION AND PLAN: Patient with bilateral lower extremity cellulitis and superficial wound. Overall clinical improvement on cefepime and clindamycin. Plan is to finish the oral Keflex with local care per Surgery. MMODL / IJN: [id number] /
[2020-02-28] MEDS: CEPHALEXIN 500 MG CAP PO SCH ×2 (18:57→22:30)
[2020-02-28] MEDS: ATORVASTATIN 40 MG TAB PO SCH (22:30)
[2020-02-29] MEDS: GABAPENTIN 300 MG CAP PO SCH ×2 (08:34→20:29)
[2020-02-29] MEDS: POTASSIUM CHLORIDE ER 20 MEQ TAB.ER PO SCH ×3 (08:34→21:49)
[2020-02-29] MEDS: HEPARIN SODIUM,PORCINE 5,000 UNIT/ML 1 ML VIAL SQ SCH ×2 (08:34→20:29)
[2020-02-29] MEDS: ETODOLAC 400 MG TAB PO SCH ×2 (08:35→20:43)
[2020-02-29] MEDS: CEPHALEXIN 500 MG CAP PO SCH (08:36)
[2020-02-29] MEDS: NICOTINE 21MG/24HR PATCH TRANSDERM SCH (08:37)
[2020-02-29] MEDS: PANTOPRAZOLE 40 MG TABLET PO SCH (08:37)
[2020-02-29] MEDS: hydroCHLOROthiazide 25 MG TAB PO SCH (08:37)
[2020-02-29] MEDS: lisinopriL 5 MG TAB PO SCH (08:40)
[2020-02-29] MEDS: HYDROPHILIC CREAM 180 GM TUBE TOPICAL SCH (12:27)
[2020-02-29] MEDS: traMADol 50 MG TAB PO PRN ×2 (12:32→20:23)
--- NOTE | 2020-02-29 13:02 | PN ---
PROGRESS NOTE DATE OF SERVICE: 02/29/2020 REASON FOR FOLLOWUP: Mild lower extremity wound and cellulitis. INTERVAL HISTORY: The patient is currently afebrile. The patient noticed to have more swelling and redness to the right upper thigh area, has some burning pain, no chest pain, shortness of breath or cough. No abdominal pain or diarrhea. PHYSICAL EXAMINATION: Blood pressure is 100/69 with a pulse of 82, temperature 98.1, she is 94% on room air. General description is a middle-aged female, lying in bed in no distress. RESPIRATORY SYSTEM: Unlabored breathing, clear to auscultation anteriorly. HEART: S1, S2. Regular rate and rhythm. ABDOMEN: Soft, no tenderness. LEGS: Right lateral site did have more swelling, slight warmth. LABS: No new labs have been obtained today. DIAGNOSTIC IMPRESSION AND PLAN: Patient has mild bilateral lower extremity wound and cellulitis with overall improvement. Patient has more swelling to the thigh and more likely from the way her leg has been positioned and wants to keep the leg straight to prevent dependent edema. Will start her on cefazolin tomorrow. MMODL / IJN: [id number] /
--- NOTE | 2020-02-29 19:32 | PN ---
PROGRESS NOTE DATE OF SERVICE: 02/28/2020 CHIEF COMPLAINT: Venostasis disease and lymphedema of the lower extremities with cellulitis. HISTORY OF PRESENT ILLNESS: This lady continues to improve. Lower extremity edema is improving and her legs are healing. Cellulitis, redness, swelling and inflammation in her right thigh are also improving. She can probably go home soon. PHYSICAL EXAMINATION: Her chest is clear. Cardiac exam is normal. Abdomen is soft, nontender. IMPRESSION: Cellulitis of the right leg secondary to lymphedema and stasis dermatitis. PLAN: Home whenever cleared by Infectious Disease. MMODL / IJN: [id number] /
--- NOTE | 2020-02-29 19:59 | PN ---
PROGRESS NOTE DATE OF SERVICE: 02/29/2020 CHIEF COMPLAINTS: Venostasis and lymphedema of the lower extremities with cellulitis. HISTORY OF PRESENT ILLNESS: This lady was to have gone home last night, and now it was planned to go today, but she has developed redness and swelling around the right hip area from the buttock around to the groin. She has had no chills or fever and it is not tender. PHYSICAL EXAMINATION: Her chest is clear. Cardiac exam is normal. The thigh is continuing to improve, but in the right lower quadrant and inguinal area she has now developed cellulitis which extends around posteriorly into the buttocks. IMPRESSION: Extension of cellulitis of the right leg into the right inguinal area, right lower quadrant and right buttock. PLAN: Hold discharge until she is seen by Infectious Disease. MMODL / IJN: [id number] /
[2020-02-29] MEDS: ATORVASTATIN 40 MG TAB PO SCH (20:29)
[2020-03-01] MEDS: SODIUM CHLORIDE 0.9% 1,000 ML IV SCH ×2 (06:35→06:38)
[2020-03-01] MEDS: lisinopriL 5 MG TAB PO SCH (09:11)
[2020-03-01] MEDS: traMADol 50 MG TAB PO PRN (09:13)
[2020-03-01] MEDS: PANTOPRAZOLE 40 MG TABLET PO SCH (09:14)
[2020-03-01] MEDS: POTASSIUM CHLORIDE ER 20 MEQ TAB.ER PO SCH (09:14)
[2020-03-01] MEDS: hydroCHLOROthiazide 25 MG TAB PO SCH (09:14)
[2020-03-01] MEDS: GABAPENTIN 300 MG CAP PO SCH (09:14)
[2020-03-01] MEDS: ETODOLAC 400 MG TAB PO SCH (09:15)
[2020-03-01] MEDS: HEPARIN SODIUM,PORCINE 5,000 UNIT/ML 1 ML VIAL SQ SCH (09:16)
[2020-03-01] MEDS: NICOTINE 21MG/24HR PATCH TRANSDERM SCH (09:16)
[2020-03-01 12:49] VITALS: BP 129/81; TEMP 97.7
[2020-03-01] MEDS: HYDROPHILIC CREAM 180 GM TUBE TOPICAL SCH (14:26)
--- NOTE | 2020-03-01 14:38 | P.PN ---
Subjective Progress Note Date: 02/24/20 Principal diagnosis: Venous stasis disease and lymphedema to her bilateral lower extremities. Past medical history significant for hypertension, chronic ongoing nicotine dependence, daily marijuana use, lymphedema to her bilateral lower extremities and history of urinary tract infection. The patient was seen in follow-up today at her bedside on the fourth floor medical surgical unit. Currently she is sitting up to the bedside edge, she is awake, alert and oriented 3 and is in no acute distress. Her T-max temperature in the last 24 hours was 99.4F, current oxygen saturation are 94% on room air. Dressings to her bilateral lower extremities remained clean dry and intact. She reports that she feels as if the swelling has reduced to both of her legs. Denies any complaints of shortness of breath or pain at this time. Continues on Kefzol for antibiotic treatment managed by infectious disease. Objective - Vital Signs Vital signs: Vital Signs Temp 99.4 F 02/24/20 07:00 Pulse 100 02/24/20 07:00 Resp 18 02/24/20 07:00 BP 119/70 02/24/20 07:00 Pulse Ox 92 L 02/24/20 07:00 Intake & Output 02/23/20 02/24/20 02/24/20 18:59 06:59 18:59 Intake Total 100 Balance 100 Intake: Oral 100 Other: Voiding Method Toilet Toilet # Voids 3 2 - Constitutional General appearance: Present: cooperative, no acute distress, obese - EENT Eyes: Present: PERRLA, normal appearance. Absent: scleral icterus ENT: Present: hearing grossly normal - Neck Neck: Absent: lymphadenopathy - Respiratory Details: Lung sounds essentially clear throughout. Respirations are symmetrical and nonlabored. Oxygen saturation is 94% on room air. - Cardiovascular Details: Regular rhythm and rate. S1 and S2 present, negative for S3, gallop or murmur. - Gastrointestinal Gastrointestinal Comment(s): Abdomen is soft, nontender and nondistended. Active bowel sounds present all 4 abdominal quadrants. No guarding or rigidity. - Genitourinary Genitourinary Comment(s): Continues to void. - Integumentary Integumentary Comment(s): Skin is warm and dry. No clubbing or cyanosis is present. Redness to her bilateral lower extremities has slightly improved. - Neurologic Neurologic: Present: CNII-XII intact - Musculoskeletal Musculoskeletal: Present: gait normal, strength equal bilaterally - Psychiatric Psychiatric: Present: A&O x's 3, appropriate affect, intact judgment & insight - Allied health notes Allied health notes reviewed: nursing - Labs CBC & Chem 7: 02/26/20 05:38 02/29/20 07:15 Labs: Abnormal Lab Results - Last 24 Hours (Table) 02/24/20 Range/Units 05:22 Creatinine 0.5 L (0.6-1.5) mg/dL Microbiology - Last 24 Hours (Table) 02/23/20 11:39 Gram Stain - Preliminary Leg - Right Wound Culture - Preliminary 02/21/20 17:33 Blood Culture - Preliminary Blood No Growth after 48 hours Assessment and Plan Assessment: 1. Lymphedema with venous stasis ulcers secondary to cellulitis to her bilateral lower extremities 2. Fever, secondary to above 3. History of hypertension 4. Chronic ongoing nicotine dependence 5. Daily marijuana use Plan: The patient was seen and examined at her bedside on the medical surgical unit. She was also is seen in conjunction with Dr. Robert Pope. Her chart and diagnostics were reviewed. She does have positive dorsalis pedal pulses per Doppler bilateral. Recommendations for local wound care with Triad cream to her ulcerated areas, cover with gauze wrapped with Kirlex and secure with Ed wraps from her toes to just below the knee bilateral. Antibioticmanagement per infectious disease. Elevation of her lower extremities with her legs being elevated 6-12 inches higher than the level of her heart when not up ambulating or sitting up for meals. Medical management and other comorbidities per primary care service. Discussed the importance of smoking cessation and risk modification with the patient. Thank you Dr. Mclean for this consult and we'll look for to working with you in the care of this patient. Seen and examined and agree with the plan. Time with Patient: Greater than 30
--- NOTE | 2020-03-01 14:43 | PN ---
PROGRESS NOTE DATE OF SERVICE: 03/01/2020 REASON FOR FOLLOWUP: Bilateral lower extremity cellulitis, right greater than left. INTERVAL HISTORY: Patient was seen on rounds this morning. The patient is feeling better. Breathing comfortably. No chest pain, shortness of breath or cough. No abdominal pain. Overall swelling, redness with pain has decreased. PHYSICAL EXAMINATION: Blood pressure 129/81 with a pulse of 70 temperature 97.7. She is 93% on room air. General description is a middle-aged female, lying in bed in no distress. RESPIRATORY SYSTEM: Unlabored breathing, clear to auscultation anteriorly. HEART: S1, S2. Regular rate and rhythm. Right thigh swelling and redness has improved. LABS: No new labs have been obtained today. DIAGNOSTIC IMPRESSION AND PLAN: Patient with bilateral lower extremity cellulitis with venostasis ulcer on right, overall clinical improvement on cefazolin with oral Keflex, local wound care to continue per Vascular Surgery and close outpatient followup. MMODL / IJN: [id number] /
[2020-03-01 15:27] VITALS: PULSE 86; RESP 18
--- NOTE | 2020-03-02 03:19 | DS ---
DISCHARGE SUMMARY CHIEF COMPLAINT: Pain, swelling, redness in the right lower leg with chills and fever. HISTORY OF PRESENT ILLNESS AND PHYSICAL EXAM: Details of this lady's history and physical can be found in the initial workup. LABORATORY STUDIES: Laboratory studies done during hospitalization can be found in the laboratory section of her chart. COURSE IN THE HOSPITAL: After admission, she was placed at bedrest and started on intravenous fluids and she was seen by Infectious Disease and Vascular Surgery. Wraps, 6 inch Ed wraps were applied to lower extremities and she was started on IV antibiotics. The legs dramatically decreased in size and though she was febrile for day or 2, temperature came down to normal. She then developed some erythema in the right thigh and after this started to subside, she developed cellulitis in the right lower abdominal wall, right groin and into the right buttock. This was receding and she was doing well. It was felt that she could go home on the . She will go home on light activity about the house and visiting nurse will come to help her with the wrapping of the lower extremities. She will be on Keflex 500 mg 4 times a day and she will be seen in the office in several days. She will also be prescribed nicotine patch as well as her other medications. FINAL DIAGNOSES: 1. Cellulitis of both lower legs secondary to lymphedema and stasis dermatitis. 2. Cellulitis of the right thigh. 3. Cellulitis of the right lower abdominal wall and groin. 4. Hypertension. 5. Nicotine abuse. OPERATIONS: None. CONSULTATIONS: Vascular Surgery and Infectious Disease. She is improved. MMODL / IJN: [id number] /
== END 2020-03-01 15:54 | disposition home health service (06) | DRG 603 ==
LOC: EC 16:33 → 4SSUR 18:43 → 6PED 02-28 10:40
PROVIDERS: ADMIT Family Medicine; ATTEND Family Medicine
DX: L03.115 Cellulitis of right lower limb (principal); L03.311 Cellulitis of abdominal wall; L03.317 Cellulitis of buttock; E87.2 Acidosis; F17.203 Nicotine dependence unspecified, with withdrawal; L03.116 Cellulitis of left lower limb; Q82.0 Hereditary lymphedema; I87.2 Venous insufficiency (chronic) (peripheral); D72.819 Decreased white blood cell count, unspecified; R00.0 Tachycardia, unspecified; E66.9 Obesity, unspecified; Z68.38 Body mass index [BMI] 38.0-38.9, adult; E87.6 Hypokalemia; I10 Essential (primary) hypertension; Z79.899 Other long term (current) drug therapy; Z87.440 Personal history of urinary (tract) infections; Z82.61 Family history of arthritis; Z91.040 Latex allergy status
CPT/HCPCS: 36415; 80048; 80053; 82565; 83605; 84132; 85025; 86140; 87040; 87070; 87077; 87186; 87205; 96361; 96365; 96375; 99284